=== PATIENT | male | born 2005 | race African-American/Black ===

== ENCOUNTER 2023-11-02 22:00 | Emergency (ER) | payer OTHER, SELFPAY ==
[2023-11-02] MEDS ORDERED: LIDOCAINE 2% W/EPI 1:200,000 MPF 20 ML VIAL IM ONE (23:09)
--- NOTE | 2023-11-03 01:03 | ER ---
Nurse's Notes [facility] Name: Heidi Fried Age: 18 yrs Sex: Male : 2005 Arrival Date: 11/02/2023 Time: 22:00 Bed 9 Private MD: Diagnosis: Unspecified open wound of other part of head, initial encounter Presentation: 11/02 22:25 Chief complaint: Patient states: playing basketball and keloid to left cheek got ripped km8 and is bleeding. Coronavirus screen: Client denies travel out of the [place] in the last 14 days. Ebola Screen: No symptoms or risks identified at this time. Initial Sepsis Screen: Does the patient meet any 2 criteria? HR > 90 bpm. Does the patient have a suspected source of infection? No. Patient's initial sepsis screen is negative. Risk Assessment: Do you want to hurt yourself or someone else? Patient reports no desire to harm self or others. Onset of symptoms was November 02, 2023 at 22:00. 22:25 Method Of Arrival: Ambulatory km8 22:25 Acuity: CADE 3 km8 Triage Assessment: 22:28 General: Appears in no apparent distress. uncomfortable, Behavior is cooperative, km8 appropriate for age, anxious. Pain: Denies pain. EENT: No signs and/or symptoms were reported regarding the EENT system. Neuro: Ruiz Agitation-Sedation Scale (RASS): 0 - Alert and Calm Level of Consciousness is awake, alert, obeys commands, Oriented to person, place, time, situation. Cardiovascular: Capillary refill < 3 seconds Patient's skin is warm and dry. Respiratory: Airway is patent Respiratory effort is even, unlabored, Respiratory pattern is regular, symmetrical. GI: No signs and/or symptoms were reported involving the gastrointestinal system. : No signs and/or symptoms were reported regarding the genitourinary system. Derm: Skin is intact, Skin is dry, Skin is pink, warm \T\ dry. normal, Skin temperature is warm bleeding keloid to left cheek. Musculoskeletal: No signs and/or symptoms reported regarding the musculoskeletal system. Circulation, motion, and sensation intact. Range of motion: intact in all extremities. Historical: - Allergies: 22:28 No Known Allergies; km8 - Home Meds: 22:28 None [Active]; km8 - PMHx: 22:28 adhd; km8 - PSHx: 22:28 None; km8 - Immunization history:: Adult Immunizations up to date, Client reports receiving the 2nd dose of the Covid vaccine, Flu vaccine is up to date. - Social history:: Smoking status: Reported history of juuling and/or vaping. Patient/guardian denies using alcohol, street drugs. Screenin/15 01:13 [facility] ED Fall Risk Assessment (Adult) History of falling in the last 3 months, jb4 including since admission No falls in past 3 months (0 pts) Confusion or Disorientation No (0 pts) Score/Fall Risk Level 0 - 2 = Low Risk Oriented to surroundings, Maintained a safe environment. Abuse screen: Denies injuries from another. Nutritional screening: No deficits noted. Tuberculosis screening: No symptoms or risk factors identified. Assessment: 01:06 Reassessment: Patient appears in no apparent distress at this time. Patient and/or jb4 family updated on plan of care and expected duration. Pain level reassessed. Patient is alert, oriented x 3, equal unlabored respirations, skin warm/dry/pink. Vital Signs: 11/02 22:25 BP 146 / 88; Pulse 115; Resp 16; Temp 98.5(O); Pulse Ox 100% on R/A; Weight 85.28 kg [facility] (R); Height 6 ft. 1 in. (R); Pain 0/10; 22:25 Body Mass Index 24.80 (85.28 kg, 185.42 cm) [facility] 22:25 Pain Scale: Adult [facility] ED Course: 22:01 Patient arrived in ED. gm2 22:03 Brett Izaguirre PA is PHCP. cp 22:03 Keyur Jackson MD is Attending Physician. cp 22:28 Triage completed. km8 22:28 Arm band placed on. km8 11/03 01:13 Patient has correct armband on for positive identification. jb4 01:13 No provider procedures requiring assistance completed. Patient did not have IV access jb4 during this emergency room visit. Administered Medications: 00:10 Drug: Lidocaine-Epinephrine Infiltration -1%: (1:100,000) 10 ml 20 ml Infiltration jb4 once; to bedside {Note: Provider administered 2% lidocaine with epi, original concentration not available..} Volume: 20 ml; Route: Infiltration; Outcome: :02 Discharge ordered by . cp 01:13 Discharged to home ambulatory, jb4 01:13 Condition: stable 01:13 Discharge instructions given to patient, Instructed on discharge instructions, follow up and referral plans. medication usage, Demonstrated understanding of instructions, follow-up care, medications, Prescriptions given X 1, 01:14 Patient left the ED. jb4 Signatures: Brett Izaguirre PA PA cp Bryson, James RN RN jb4 Chastity Wright 2 Cindy Mccurdy RN RN km8
--- NOTE | 2023-11-03 01:03 | EDPHYS ---
Physician Documentation [facility] Name: Heidi Fried Age: 18 yrs Sex: Male : 2005 Arrival Date: 11/02/2023 Time: 22:00 Bed 9 Private MD: ED Physician Keyur Jackson HPI: 11/02 23:00 This 18 yrs old Black Male presents to ER via Ambulatory with complaints of KELOID cp LACTERATION. 23:00 The patient has a laceration occurred at a sports field or court, The injury was cp playing basketball. The laceration(s) is(are) located on the left cheek and jaw area. 23:00 Onset: The symptoms/episode began/occurred just prior to arrival. Patient is a cp 18-year-old male with past medical history significant for ADHD who presents to the emergency department with reported bleeding from a large keloid located to his left cheek/jaw area. Patient reports he was playing basketball when he was struck by another player in this area and since has had continuous bleeding from this keloid. Patient has a dermatology appointment in the future for removal of this keloid but comes to the emergency department due to continued bleeding. No other injuries. Historical: - Allergies: 22:28 No Known Allergies; km8 - Home Meds: 22:28 None [Active]; km8 - PMHx: 22:28 adhd; km8 - PSHx: 22:28 None; km8 - Immunization history:: Adult Immunizations up to date, Client reports receiving the 2nd dose of the Covid vaccine, Flu vaccine is up to date. - Social history:: Smoking status: Reported history of juuling and/or vaping. Patient/guardian denies using alcohol, street drugs. ROS: 23:10 Skin: Positive for laceration(s), of the left cheek/jaw, cp 23:10 Constitutional: Negative for body aches, chills, fever, cp 23:10 Neuro: Negative for headache, loss of consciousness, weakness, 23:10 All other systems are negative, Exam: 23:15 Constitutional: The patient appears in no acute distress, alert, awake, non-toxic, well cp developed, well nourished, anxious, 23:15 Head/face: Noted is There is a large flesh-colored mass located in the area of the left cp cheek, left lower Gil has mild tenderness but multiple superficial wounds with active bleeding noted but otherwise intact. 23:15 Eyes: Periorbital structures: appear normal, Conjunctiva: normal, no exudate, no injection, Sclera: no appreciated abnormality, Lids and lashes: appear normal, bilaterally, 23:15 ENT: External ear(s): are unremarkable, Nose: is normal, Mouth: Lips: moist, Oral mucosa: pink and intact, moist, Posterior pharynx: is normal, airway is patent, no erythema, no exudate, 23:15 Neck: C-spine: vertebral tenderness, is not appreciated, crepitus, is not appreciated, ROM/movement: is normal, is supple, without pain, no range of motions limitations, no meningismus, 23:15 Chest/axilla: Inspection: normal, Palpation: is normal, no crepitus, no tenderness, 23:15 Cardiovascular: Rate: tachycardic, Rhythm: regular, 23:15 Respiratory: the patient does not display signs of respiratory distress, Respirations: normal, no use of accessory muscles, no retractions, labored breathing, is not present, Breath sounds: are clear throughout, no decreased breath sounds, no stridor, no wheezing, 23:15 Abdomen/GI: Exam negative for discomfort, distension, guarding, Inspection: abdomen appears normal, 23:15 Back: pain, is absent, ROM is normal, 23:15 Neuro: Orientation: to person, place \T\ time. Mentation: is normal, Motor: moves all fours, strength is normal, Sensation: is normal, Gait: is steady, Vital Signs: 22:25 BP 146 / 88; Pulse 115; Resp 16; Temp 98.5(O); Pulse Ox 100% on R/A; Weight 85.28 kg km8 (R); Height 6 ft. 1 in. (R); Pain 0/10; 22:25 Body Mass Index 24.80 (85.28 kg, 185.42 cm) km8 22:25 Pain Scale: Adult km8 MDM: 22:27 Patient medically screened. cp 23:00 Differential diagnosis: superficial laceration, vascular injury, fracture, multiple cp trauma. 11/03 01:01 Data reviewed: vital signs, nurses notes, I have discussed the patient's cp presentation/case with the attending Emergency Department Physician; and as a result, I will discharge patient. 01:01 I considered the following discharge prescriptions or medication management in the cp emergency department Medications were administered in the Emergency Department. See MAR. Counseling: I had a detailed discussion with the patient and/or guardian regarding the historical points, exam findings, and any diagnostic results supporting the discharge/admit diagnosis, the need for outpatient follow up, a resolution specialist, to return to the emergency department if symptoms worsen or persist or if there are any questions or concerns that arise at home. Response to treatment: the patient's symptoms have markedly improved after treatment, bleeding controlled after application of surgiseal and pressure dressing. will discharge to custody of law enforcement. 11/02 22:44 Order name: Dressing - Wound; Complete Time: 01:05 cp 11/02 22:44 Order name: Gloves, Sterile; Complete Time: 23:12 cp 11/02 22:44 Order name: Setup Suture Tray; Complete Time: 23:12 cp Administered Medications: 00:10 Drug: Lidocaine-Epinephrine Infiltration -1%: (1:100,000) 10 ml 20 ml Infiltration jb4 once; to bedside {Note: Provider administered 2% lidocaine with epi, original concentration not available..} Volume: 20 ml; Route: Infiltration; Disposition Summary: 11/03/23 01:02 Discharge Ordered Notes: Location: Home cp Problem: new cp Symptoms: have improved cp Condition: Stable cp Diagnosis - Unspecified open wound of other part of head, initial encounter cp Followup: cp - With: Private Physician - When: 2 - 3 days - Reason: Wound Recheck Discharge Instructions: - Discharge Summary Sheet cp - Nonsutured Laceration Care cp Forms: - Medication Reconciliation Form cp - Thank You Letter cp - Antibiotic Education cp - Prescription Opioid Use cp - Patient Portal Instructions cp - Leadership Thank You Letter cp Prescriptions: - Cephalexin 500 mg Oral Capsule - take 1 capsule ORAL route every 8 hours for 10 days; 30 capsule; Refills: 0, cp Product Selection Permitted Addendum: 11/04/2023 03:35 Co-signature as Attending Physician, Keyur Jackson MD I reviewed the patient's care r n provided by the Advanced Practice Provider and agree with the diagnosis and treatment plan. Signatures: Keyur Jackson MD MD rn Page, Corey, PA PA cp Bryson, James, RN RN jb4 Kaz, Cindy, RN RN km8
[2023-11-03 02:31] VITALS: BP 146/88; TEMP 98.5; O2SAT 100
== END 2023-11-03 01:14 | disposition home or self-care (01) ==
LOC: ER 22:00
DX: S01.412A Laceration without foreign body of left cheek and temporomandibular area, initial encounter (principal)
CPT/HCPCS: 99283